=== PATIENT | female | born 1985 | race Caucasian/White ===

== ENCOUNTER 2017-08-16 09:00 | Inpatient (IN) | payer OTHER ==
[~2017-08-16] VITALS: Ht 167.6 cm; Wt 84.8 kg
== END 2017-09-08 11:34 | disposition home or self-care (01) | DRG 775 ==
LOC: ADM 09:00 → EDSTATUS 09:00 → LDR 09-06 08:53 → OB/GYN 09-06 11:55
PROC: 10E0XZZ Delivery of Products of Conception, External Approach (ICD-10-PCS; principal; 2017-09-06)
PROC: 0UQGXZZ Repair Vagina, External Approach (ICD-10-PCS; 2017-09-06)
PROC: 4A1HXCZ Monitoring of Products of Conception, Cardiac Rate, External Approach (ICD-10-PCS; 2017-09-06)
DX: O48.0 Post-term pregnancy (principal); O71.4 Obstetric high vaginal laceration alone; Z3A.40 40 weeks gestation of pregnancy; Z37.0 Single live birth

== ENCOUNTER 2017-08-30 10:09 | Outpatient (CLI) | payer OTHER | END 2017-08-30 11:15 | disposition home or self-care (01) | LOC: NST 10:09 | DX: Z34.83 Encounter for supervision of other normal pregnancy, third trimester (principal) ==

== ENCOUNTER 2017-09-03 15:17 | Outpatient (CLI) | payer OTHER | END 2017-09-03 16:51 | disposition home or self-care (01) | LOC: NST 15:17 | DX: Z34.83 Encounter for supervision of other normal pregnancy, third trimester (principal) ==